=== PATIENT | female | born 1980 | race Caucasian/White ===

== ENCOUNTER 2021-08-14 07:58 | Emergency (ER) | payer BC ==
[~2021-08-14] VITALS: Ht 170.2 cm; Wt 99.8 kg
[2021-08-14 08:27] VITALS: BP 128/83
[2021-08-14] MEDS ORDERED: KETOROLAC TROMETH 60MG/2ML VIAL IM ONE (08:30)
[2021-08-14] MEDS ORDERED: METH750T22 PO (09:15)
[2021-08-14] MEDS ORDERED: IBUP800T27 PO (09:15)
== END 2021-08-14 09:26 | disposition home or self-care (01) ==
LOC: ER 07:58
DX: S39.012A Strain of muscle, fascia and tendon of lower back, initial encounter (principal); F17.210 Nicotine dependence, cigarettes, uncomplicated; M62.830 Muscle spasm of back; X50.1XXA Overexertion from prolonged static or awkward postures, initial encounter; Y93.89 Activity, other specified; Y92.89 Other specified places as the place of occurrence of the external cause; Y99.8 Other external cause status
CPT/HCPCS: 72100; 96372; 99283; J1885